=== PATIENT | female | born 1980 | race Caucasian/White ===

== ENCOUNTER 2016-11-24 12:00 | Inpatient (IN) | payer OTHER ==
[2016-11-26] MEDS ORDERED: CITRIC ACID/SODIUM CITRATE 30 ML UDCUP PO ONE (10:29)
[2016-11-26] MEDS ORDERED: LR 500 ML IV ONE (10:29)
[2016-11-26] MEDS ORDERED: LR 1,000 ML IV SCH (10:30)
--- NOTE | 2016-11-26 11:16 | PREANESOB ---
Obstetric Pre-Anesthesia Info - General Info Proposed Procedure: Repeat C Section. : 3 Para: 1 WBD: 39 - Info Status: Full Term Monitors: External FHR Baseline (bpm): 135 FHR Pattern: Reassuring - Labor Status Indications for Current Section: Elective/Repeat Labor Epidural: No Anesthesia ROS: Prior epidural for labor and C Section. Allergies/Adverse Reactions: Allergy/AdvReac Type Severity Reaction Status Date / Time No Known Allergies Allergy Unverified 11/23/16 09:37 Home Medications: Medication Instructions Recorded Cholecalciferol (Vitamin D3) 4,000 units PO DAILY 11/26/16 [Vitamin D3] FOLIC ACID 1 tab PO DAILY 11/26/16 Vit27&Calcium/Iron/FA 1 each PO DAILY 11/26/16 [ Rx 1 Tablet (RX)] Visit Medications: Generic Name Dose Route Start Last Admin Trade Name Freq PRN Reason Stop Dose Admin Lactated Ringer's 1,000 mls @ 125 mls/hr 11/26/16 10:30 Lr IV 05/25/17 10:29 CONT BRITTANY Discontinued Medications Generic Name Dose Route Start Last Admin Trade Name Freq PRN Reason Stop Dose Admin Citric Acid/Sodium Citrate 30 ml 11/26/16 10:29 Bicitra PO 11/26/16 10:30 ONCALL ONE Lactated Ringer's 500 mls @ 0 mls/hr 11/26/16 10:29 Lr IV 11/26/16 10:30 ONCE ONE As Directed - Anesthesia History Response to Local Anesthetics: Normal Anesthesia & Operative History: No Prior Problems Family Anesthesia History: Negative - Social History Substance Use/Abuse: Denies - Focused Exam Blood Pressure: 109/55 Heart Rate: 84 Height/Weight (Nursing): Height 157.48 cm Weight 70.307 kg Physical Exam: Within normal limits. ASA Status: II - Plan Anesthetic Plan: SAB Consent Signed and on Chart: Yes Patient/Guardian Understands and Agrees to Plan: Yes
[2016-11-26 11:27] LABS: % IMMATURE GRANULYOCYTES 0.9 % (0.0-1.1); ABSOLUTE IMMATURE GRANULOCYTES 0.07 10^3/uL (0.00-0.10); ADD DIFF? NO; ADD MORPH? NO; ADD SCAN? NO; ATYPICAL LYMPHOCYTE FLAG 0 (0-99); FRAGMENT RBC FLAG 0 (0-99); HEMATOCRIT 34.8 % (38.0-47.0); HEMOGLOBIN 11.7 g/dL (12.6-16.3); LEFT SHIFT FLG 10 (0-99); LIPEMIA HEMOLYSIS FLAG 80 (0-99); MEAN CELL HEMOGLOBIN 29.4 pg (27.9-34.1); MEAN CELL HEMOGLOBIN CONCENTR. 33.6 g/dL (32.4-36.7); MEAN CELL VOLUME 87.4 fL (81.5-99.8); MEAN PLATELET VOLUME 11.1 fL (8.7-11.7); PLATELET CLUMPS FLAG 0 (0-99); PLATELET COUNT 154 10^3/uL (150-400); RED BLOOD CELL COUNT 3.98 10^6/uL (4.18-5.33); RED CELL DISTRIBUTION WIDTH 13.6 % (11.5-15.2)
[2016-11-26] MEDS ORDERED: ceFAZolin 2 GM/DEXTROSE 100 ML IV ONE (11:36)
[2016-11-26] MEDS ORDERED: PHENYLEPHRINE HCL 100 MCG/ML SYR ONE ×2 (11:37→11:54)
[2016-11-26] MEDS ORDERED: fentaNYL 100 MCG/2 ML INJ ONE (11:37)
[2016-11-26] MEDS ORDERED: ONDANSETRON 4 MG/2 ML VIAL ONE ×2 (11:38)
[2016-11-26] MEDS ORDERED: DEXAMETHASONE 4 MG/ML VIAL ONE ×2 (11:38)
[2016-11-26] MEDS ORDERED: OXYTOCIN 100 UNITS/10 ML VIAL ONE (11:38)
[2016-11-26] MEDS ORDERED: PROMETHAZINE HCL 25 MG/ML INJ IVP PRN (13:01)
[2016-11-26] MEDS ORDERED: SIMETHICONE 80 MG TAB CHEW PO PRN (13:01)
--- NOTE | 2016-11-26 13:04 | OBDEL ---
Info Type: Repeat GBS+: No Operative Report - Delivery Pre-op Diagnoses: Breech- repeat C/S Post-op Diagnoses: Breech- repeat C/S Nulliparous Prior to Delivery: No Presentation at Delivery: Breech Procedure: Scheduled, Low Transverse Surgeon: Nhi Escobar Kiln Placer: Kimberley Mckinnon Anesthesiologist: Varghese Amaral Docking Saw Operator/[employer] DEAN: Mylnee Jacobo L&D Analgesia/Anesthesia Type: Spinal Complications: None IV Fluid (ml): 2,800 EBL: 800 [place] [facility] Delivery Date: 11/26/16 Delivery Time: 12:44 Sex of : Male Score (1 Min): 9 Score (5 Min): 9 ICD10 Worksheet Patient Problems: Problems Problem Status Onset Previous section Acute
--- NOTE | 2016-11-26 13:57 | GOP ---
[f rep st] OPERATIVE REPORT DATE OF OPERATION: SURGEON: Nhi Schulz MD SIDER MECHANIC: Certified nurse car inspection and repair manager Kimberley Mckinnon. ANESTHESIA: Spinal. PREOPERATIVE DIAGNOSIS: 1. Intrauterine at 39 weeks' gestation. 2. Previous section and breech. POSTOPERATIVE DIAGNOSIS: 1. Intrauterine at 39 weeks' gestation. 2. Previous section and breech. PROCEDURE PERFORMED: Repeat low transverse section. FINDINGS: Viable male, Apgars 9 and 9, in deepali breech presentation. ESTIMATED BLOOD LOSS: 800 mL. INDICATIONS: The patient is a 36-year-old, G2, P1 female who is at 39+ weeks gestation who presents for a repeat section for previous section and breech presentation. DESCRIPTION OF PROCEDURE: The patient was taken to the operating room. She was prepped and draped in normal sterile fashion in the dorsal supine position with a leftward tilt. A surgical time-out was performed, verifying the patient' s name, date of , planned procedure, and site. The patient received 2 g of Ancef preoperatively. The previous incision was removed in elliptical fashion. A Pfannenstiel skin incision was made with a scalpel, carried down to the fascia. The fascia was incised in the midline and extended laterally. The superior aspect of the fascia was grasped with the Ravi clamps. The rectus muscles dissected off bluntly and with the Bovie cautery. Inferior aspect of the fascia was grasped with Ravi clamps, the rectus muscles dissected off bluntly and with the Bovie cautery. The peritoneum was identified and entered in sharply. The peritoneum was divided, the bladder blade was placed and the vesicouterine peritoneum was incised with the Metzenbaum scissors and the bladder flap was created digitally. The bladder blade was replaced. The uterus was incised with a scalpel and the uterine incision was extended laterally. The was in deepali breech presentation. The infant was delivered. The cord was clamped and cut. Cord blood was obtained. The infant was handed to the awaiting nurse. The placenta was delivered spontaneously. The uterus was exteriorized and cleared of all clots and debris. The uterine incision was reapproximated with 0 Monocryl in a running, locked fashion in 2 layers. The uterus was returned to the abdomen. The gutters were cleared of all clots and debris. The uterine incision was reinspected and noted to be hemostatic. The subfascial spaces were inspected and made hemostatic. The subcutaneous tissue was irrigated and the skin was closed with 4-0 Monocryl. All counts were correct x2. The patient tolerated the procedure well and was stable to recovery room. COMPLICATIONS: None. OUTCOME: Stable to recovery room. /[id number]/MODL MTDD
[2016-11-26] MEDS ORDERED: SCOPOLAMINE HYDROBROMIDE 1.5 MG PATCH TD ONE (14:25)
[2016-11-26] MEDS ORDERED: ONDANSETRON 4 MG/2 ML VIAL IVP PRN (14:34)
[2016-11-26] MEDS ORDERED: NALOXONE HCL 0.4 MG/ML INJ IVP PRN (14:34)
[2016-11-26] MEDS ORDERED: SCOPOLAMINE HYDROBROMIDE 1.5 MG PATCH TD PRN (14:37)
[2016-11-26] MEDS: KETOROLAC 30 MG/1 ML SDV IVP SCH ×2 (15:56→22:08)
[2016-11-26] MEDS ORDERED: KETOROLAC 30 MG/1 ML SDV IVP SCH (18:00)
[2016-11-27] MEDS: KETOROLAC 30 MG/1 ML SDV IVP SCH ×2 (04:41→10:55)
[2016-11-27] MEDS: DOCUSATE SODIUM 100 MG CAP PO PRN ×2 (08:51→20:47)
--- NOTE | 2016-11-27 09:50 | SOAPPROG ---
SOAP Progress Note Assessment/Plan: Assessment: 36 yo s/p ltcs, repeat, pod 1, doing well. Plan: 11/27/16 09:49 Routine postop care. Rh +, rubella immune. Home on Tuesday. Subjective: 36 yo s/p ltcs, repeat, pod 1, doing well. Objective: Vital Signs Temp Pulse Resp BP Pulse Ox 36.4 C 68 16 104/58 L 97 11/27/16 08:00 11/27/16 08:00 11/27/16 08:00 11/27/16 08:00 11/27/16 08:00 Laboratory Results 11/27/16 06:10 11/26/16 11/27/16 11/28/16 05:59 05:59 05:59 Intake Total 1850 Output Total 2950 600 Balance -1100 -600 Physical Exam - Physical Exam General Appearance: no apparent distress Respiratory: lungs clear Cardiac/Chest: regular rate, rhythm Abdomen: non-tender Skin: warm/dry Extremities: non-tender Neuro/Psych: oriented x 3 ICD10 Worksheet Patient Problems: Problems Problem Status Onset Previous section Acute
--- NOTE | 2016-11-27 09:54 | OBGCSDC ---
General Delivery Information - General Info : 3 Para: 2 Delivery Physician/CNM: Nhi Escobar Paint Spraying Machine Operator Helper: Kimberley Mckinnon Admission Date: 11/26/16 Labs: Hct 29.6 % (38.0-47.0) L 11/27/16 06:10 Vaginal - Diagnosis Presentation at Delivery: Breech - Operations/Procedures L&D Analgesia/Anesthesia Type: Spinal - Delivery Number of Prior Sections: 1 Indications for Prior Section: Arrest of Dilation Indications for Current Section: Elective/Repeat Type: Repeat Surgical Procedures: Scheduled Intra-op Complications: None EBL: 800 ml L&D Analgesia/Anesthesia Type: Spinal - Hospital Course Antepartum: AMA Intrapartum: none : none [place] Data [facility] Delivery Date: 11/26/16 Delivery Time: 12:44 HECTOR: 11/29/16 Gestational Age: 39 week(s) and 5 day(s) Sex of Infant: Male Weight (gm): 3902 g Score (1 Min): 9 Score (5 Min): 9
[2016-11-27] MEDS: HYDROCODONE/APAP 5/325 TAB PO PRN ×3 (12:56→20:46)
[2016-11-27] MEDS ORDERED: PATCH REMOVAL 1 EA PATCH TD ONE (14:38)
[2016-11-27] MEDS: IBUPROFEN 600 MG TAB PO PRN ×2 (16:43→23:36)
[2016-11-28] MEDS: HYDROCODONE/APAP 5/325 TAB PO PRN ×6 (00:44→21:25)
[2016-11-28] MEDS: IBUPROFEN 600 MG TAB PO PRN ×4 (05:27→23:30)
[2016-11-28] MEDS: DOCUSATE SODIUM 100 MG CAP PO PRN (09:01)
[2016-11-28 09:35] VITALS: O2SAT 96
--- NOTE | 2016-11-28 10:44 | OBPP ---
Progress Note Assessment/Plan: Assessment: 36 yo s/p ltcs, repeat, pod 2, doing well. Plan: 1) Routine PP care 2) O+, RI 3) Discharge home tomorrow 11/28/16 10:47 Subjective: Pt feeling well, ambulating, tolerating regular diet, voiding spontaneously, passing flatus, breast feeding progressing and lochia diminishing. Objective: 11/27/16 06:10 Temp Pulse Resp BP Pulse Ox 36.6 C 84 16 113/70 96 11/28/16 09:00 11/28/16 09:00 11/28/16 09:00 11/28/16 09:00 11/28/16 09:00 Uterine Position/Fundal Height: At Umbilicus Uterine Tone: Firm Physical Exam - Physical Exam General Appearance: WD/WN, alert, no apparent distress Respiratory: lungs clear Cardiac/Chest: regular rate, rhythm Abdomen: normal bowel sounds, soft, incision (c/d/i, fundus firm)
[2016-11-29] MEDS: HYDROCODONE/APAP 5/325 TAB PO PRN ×3 (01:36→11:50)
[2016-11-29] MEDS: IBUPROFEN 600 MG TAB PO PRN ×2 (06:06→11:50)
[2016-11-29 08:42] VITALS: BP 121/79; PULSE 74; RESP 16; TEMP 98.2
--- NOTE | 2016-11-29 08:42 | OBGCSDC ---
General Delivery Information - General Info : 3 Para: 2 Delivery Physician/CNM: Nhi Escobar Transport Coordinator: Kimberley Mckinnon Admission Date: 11/26/16 Labs: Hct 29.6 % (38.0-47.0) L 11/27/16 06:10 Vaginal - Diagnosis Presentation at Delivery: Breech - Operations/Procedures L&D Analgesia/Anesthesia Type: Spinal - Delivery Number of Prior Sections: 1 Indications for Prior Section: Arrest of Descent Indications for Current Section: Elective/Repeat Type: Repeat Surgical Procedures: Scheduled Intra-op Complications: None EBL: 800 ml L&D Analgesia/Anesthesia Type: Spinal [place] [employer] [facility] Delivery Date: 11/26/16 Delivery Time: 12:44 HECTOR: 11/29/16 Gestational Age: 40 week(s) and 0 day(s) Sex of Infant: Male Weight (gm): 3902 g Score (1 Min): 9 Score (5 Min): 9 Discharge Information - Discharge Information Discharge Medications: Ibuprofen, Oxycodone, Vitamins Condition: Good Instruction/Follow Up: Two Weeks, Four Weeks, Six Weeks Discharge Physician/CNM: Kimberley Mckinnon
[2016-11-29] MEDS ORDERED: FERROUS SULFATE 325 MG TAB PO SCH (09:00)
[2016-11-29] MEDS: DOCUSATE SODIUM 100 MG CAP PO PRN (11:50)
== END 2016-11-29 12:20 | disposition home or self-care (01) | DRG 766 ==
LOC: FLD 11-26 10:07 → FOB 11-26 15:53
PROVIDERS: ADMIT Obstetrics & Gynecology; ATTEND Obstetrics & Gynecology
PROC: 10D00Z1 Extraction of Products of Conception, Low, Open Approach (ICD-10-PCS; principal; 2016-11-26)
DX: O34.219 Maternal care for unspecified type scar from previous cesarean delivery (principal); Z37.0 Single live birth; Z3A.40 40 weeks gestation of pregnancy
CPT/HCPCS: J0690; J1100; J1200; J1885; J2370; J2405; J2550; J2590; J3010